=== PATIENT | female | born 1930 | race Caucasian/White ===

== ENCOUNTER 2016-11-07 20:25 | Emergency (ER) | payer MEDICARE, OTHER ==
[~2016-11-07] VITALS: Ht 167.6 cm; Wt 81.6 kg
[~2016-11-07 20:25] MED LIST: ASPIRIN 81MG TA81 MG PO; CALCIUM + D 5001 TAB PO; FLONASE 50 MCG16 GM; IRON TABLETS325 MG PO; LEVAQUIN500 MG PO; LISINOPRIL HCTZ1 TAB PO; MULTI VITAMINS1 TAB PO; SYNTHROID 0.0.125 MG PO; ULTRAM50 MG PO; UNIRETIC 25 MG-1 TAB PO
[2016-11-07] MEDS ORDERED: CARAFATE1 GM PO (20:36)
[2016-11-07] MEDS ORDERED: BISOPROLOL FUMA10 MG PO (20:37)
[2016-11-07] MEDS ORDERED: OMEPRAZOLE40 MG PO (20:37)
[2016-11-07] MEDS ORDERED: SYNTHROID0.125 M1 PO (20:38)
[2016-11-07] MEDS ORDERED: POTASSIUM CHLO10 MEQ PO (20:38)
[2016-11-07] MEDS ORDERED: AMLO5TAB PO (20:38)
[2016-11-07] MEDS ORDERED: UNISOM25 M2 PO (20:40)
[2016-11-07] MEDS ORDERED: D3-55000 IU PO (20:40)
--- OUTSIDE RECORDS SUMMARY | 2016-11-07 20:42 | External Medical Summary Rpt ---
Author Author , Organization [employer] Address Unknown Phone Unavailable Purpose Continuity of Care Document - through 2016
--- OUTSIDE RECORDS SUMMARY | 2016-11-07 20:43 | External Medical Summary Rpt ---
Author Author [employer] Organization [employer] Address Unknown Phone Unavailable Purpose Continuity of Care Document - through 2016
--- OUTSIDE RECORDS SUMMARY | 2016-11-07 20:43 | External Medical Summary Rpt ---
Demographics Preferred Language Prydeinig Marital Status Unknown Yazidism Affiliation Unknown Race Unknown Ethnic Group Unknown Author Author , Organization [employer] Address Unknown Phone Unavailable Purpose Continuity of Care Document - through 2016 Immunization No patient found.
--- OUTSIDE RECORDS SUMMARY | 2016-11-07 20:43 | External Medical Summary Rpt ---
Author Author [employer] Lynn, [employer] Organization [employer] Address Unknown Phone Unavailable
--- OUTSIDE RECORDS SUMMARY | 2016-11-07 20:43 | External Medical Summary Rpt ---
Demographics Preferred Language Argentine Marital Status Unknown Pentecostalism Affiliation Unknown Race Unknown Ethnic Group Unknown Author Author , Organization [employer] Address Unknown Phone Unavailable Purpose Continuity of Care Document - through 2016 Immunization No patient found.
--- NOTE | 2016-11-07 20:44 | Emergency Room Report ---
History of Present Illness Time Seen by 2040 Presenting Problem in Triage Pt arrived:Walked Presenting Problem:PT STATES SHE WAS AT HOME WHEN SHE MISSTEPPED AND FELL AND INJURED HER LEFT WRIST. STATES HAPPENED APPROX 1600 TODAY. 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 N Clinical Suspician of Infection? N Mental Status: 1 - Regular (Normal Baseline) Sepsis Risk:Low Sepsis Risk Have you (or family members/close friends) recently traveled outside the [place]? N If Yes, where/when: Have you had exposure to infectious disease within the past month? N TB? Other? Specify: Source patient, RN notes reviewed, family, old records Exam Limitations no limitations Comment trip type fall today with lt wrist injury - no other c/o Cardiac Chest Pain Chest pain indicative of cardiac No Timing/Duration this afternoon Severity moderate ALLERGIES Coded Allergies: No Known Allergies (11/07/16) Home Medications Active Scripts Tramadol Hcl (Ultram 50MG) 50 MG PO Q6HP PRN pain 5 Days Prov: 09/26/14 Reported Medications Multiple Vitamin (Multi Vitamins) 1 TAB PO DAILY ASPIRIN (Aspirin) 81 MG PO DAILY Calcium/Vitamin D (Calcium + D 500 Mg-125 Iu) 1 TAB PO BID LISINOPRIL/HYDROCHLOROTHIAZIDE (Lisinopril-Hctz 20-25 MG Tab) 1 TAB PO DAILY #90 Sucralfate (Carafate) 1 GM PO BID #180 Omeprazole (Omeprazole 40MG) 40 MG PO DAILY #90 Bisoprolol Fumarate 10 MG PO DAILY #90 Amlodipine Besylate (Amlodipine) 5 MG PO DAILY #90 Levothyroxine Sod (Synthroid) 0.125 MG PO DAILY #90 Potassium Chloride (POTASSIUM CHLORIDE 10mEq CAP) 10 MEQ PO DAILY #90 CHOLECALCIFEROL (VITAMIN D3) (Vitamin D3) 5,000 PO DAILY Doxylamine Succinate (Unisom) 25 MG PO PRN PRN INSOMNIA History Medical History General CAD? No Angina: Yes [place]: No Hypertension? Yes Hyperlipidemia? No CHF? No DVT? No PE? No COPD? No Asthma? No Anemia? No GERD? No Gastric ulcers? No GI Bleed? No Hernia? No Thyroid Problems? Yes Hypothyroidism? Yes CVA? No Seizures? No Diabetes? No Renal Insuffiency? No End Stage Renal Disease? No UTI? No Stones? No GB Disease: Yes Nephritic Syndrome? No Asplenia? No Hepatitis? No Sickle Cell Disease? No Arthritis? No Migraines? No Cataracts? No Glaucoma? No MRSA? No HIV? No TB? No Anxiety? No Depression? No Cancer? No Immunization Hx DT/Tetanus UNKNOWN Flu THISFLUSEA Pneumonia Received In Past Surgical Hx Previous Surgery?Y LEFT HIP REPLACEMENT GALLBLADDER RADIOACTIVE IODINE THYROI Social History Smoking Hx Smoker: Never Smoker Tobacco: No Alcohol Alcohol: Yes Drugs none Review of Systems All Other Systems Reviewed and Negative Constitutional denies fever Eyes denies drainage ENT denies: ear pain, epistaxis, throat pain. Respiratory denies cough, denies shortness of breath, denies wheezing Cardiovascular denies chest pain, denies palpitations, denies syncope Gastrointestinal denies abdominal pain, denies diarrhea, denies vomiting Genitourinary denies: dysuria, frequency, hesitancy, hematuria. Musculoskeletal see HPI, denies back pain, joint pain, joint swelling, denies neck pain Skin denies rash Psychiatric/Neurological denies headache, denies seizure Physical Exam Vital Signs Vital Signs Date Time Temp Pulse Resp B/P Pulse O2 O2 Flow FiO2 Ox Delivery Rate 11/07 2030 97.9 74 20 143/97 94 - WBC >12,000 or <4,000 or 10% bands? 2 or more SIRS Criteria Met? B/P:143/97 MAP:112 Creatinine >2.0? UA output<0.5ml/kg/hr for 2 hrs? Platelet count >100,000? Lactate >2.0mmol/1? INR >1.2 or PTT > than 60 sec? Evidence of Organ Dysfunction? Provider documented clinical suspician of infection? N Sepsis Criteria Count: 1 Sepsis Risk: Low Sepsis Risk General Appearance no apparent distress Eye Exam - bilateral eye PERRL, bilateral eye EOMI Ear, Nose, Throat normal ENT inspection Neck supple Respiratory Status No: respiratory distress. 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 No Results/Orders Current Medication Orders Sig/Diane Start time Last Medication Dose Route Stop Time Status Admin Ibuprofen 0 .STK-MED ONE 11/07 2045 DC PO Ibuprofen 800 MG ONCE ONE 11/07 2044 DC 11/07 PO 11/07 Orders Procedure Date/time Status WRIST-3 VIEWS-LT 11/07 2040 Active XRAY/CT/US XRAY/CT/US XRAY wrist XR interpretation by reviewed by me Xray Results abnormal (fx seen) Departure Departure Time of Disposition 2102 Disposition DC Home or Self Care(routine) Clinical Impression Primary Impression: Wrist fracture, left Qualifiers: Encounter type: initial encounter Fracture type: closed Qualified Code: S62.102A - Fracture of unspecified carpal bone, left wrist, initial encounter for closed fracture Condition STABLE Referrals Heath Lara MD Patient Instructions DI for Wrist Fracture Additional Instructions ice and wear splint and see pcp for follow up and ortho Discharge Counseling Counseled pt/family regarding diagnosis, test results, follow up needs ED Critical Care Critical Care No at 2101
[2016-11-07 21:29] VITALS: BP 142/77
--- NOTE | 2016-11-07 21:56 | RADIOLOGY REPORT PS360 ---
WRIST-3 VIEWS- Ordering Physician: Myah Cai MD Patient Age: 85 years: Female HISTORY: FALLinjury pain left wrist TECHNIQUE: 3 view left wrist FINDINGS Fracture distal radius. The fracture passes through the dorsal aspect of distal radius, which extends to involve the the articular cortex distal radius. Although fairly congruent alignment fracture passing through the articular cortex. Slight dorsal tilt of the distal radial fracture fragment is noted. Diffuse soft tissue swelling. There is also a nondisplaced fracture at the ulnar styloid. At this basically Colles' type fracture Minimal calcification noted throughout the triangle fibrocartilage. Diffuse soft tissue swelling about the wrist. 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 Joint space narrowing. Sclerosis and early marginal osteophytes seen about this arthritic first carpal-metacarpal joint. Metacarpals appear intact with no fracture IMPRESSION: 1. Fracture distal radius, with extension to the articular cortex. 2. Associated nondisplaced fracture ulnar styloid
== END 2016-11-07 21:29 | disposition home or self-care (01) ==
LOC: ER 20:25
PROC: 2W3DX1Z Immobilization of Left Lower Arm using Splint (ICD-10-PCS; principal; 2016-11-07)
DX: S62.102A Fracture of unspecified carpal bone, left wrist, initial encounter for closed fracture (principal); W10.8XXA Fall (on) (from) other stairs and steps, initial encounter; Y92.009 Unspecified place in unspecified non-institutional (private) residence as the place of occurrence of the external cause